=== PATIENT | female | born 1995 | race Caucasian/White ===

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

== ENCOUNTER → 2017-01-01 | Outpatient (CLI) | payer OTHER | LOC: BHSO 09:49 | DX: F41.1 Generalized anxiety disorder (principal) ==